=== PATIENT | male | born 1965 | race African-American/Black ===

== ENCOUNTER 2016-11-17 08:27 | Emergency (ER) | payer BC, SELFPAY ==
[2016-11-17] MEDS ORDERED: guaiFENesin 100 MG/5 ML UDCUP ONE (08:53)
[2016-11-17] MEDS ORDERED: Sodium Chloride 0.9% 1,000 ML ONE (09:06)
--- NOTE | 2016-11-17 09:12 | RAD ---
CHEST PA AND LATERAL: Date: 11/17/16 HISTORY: 50-year-old male with cough, with white sputum for 1 month. FINDINGS: Heart size is within normal limits. Old granulomatous calcifications. No confluent pneumonia, overt edema, or pleural effusion. IMPRESSION: Old granulomatous disease. Stable from 06/30/14. No evidence for pneumonia. POS: [facility]
--- NOTE | 2016-11-17 09:22 | RAD ---
3 VIEWS PARANASAL SINUSES: Date: 11/17/16 INDICATION: Cough with white sputum from the mouth. FINDINGS: There is an air fluid level seen within the right maxillary sinus. There is mild mucosal thickening involving the inferior aspect of the left maxillary sinus. Frontal sinuses appear clear. Ethmoid air cells appear clear. Orbital rims are intact. IMPRESSION: Air fluid level within the right maxillary sinus suspicious for acute sinusitis. POS: [facility]
[2016-11-17 09:35] LABS: #Basophils 0.1 thou/uL (0.0-0.2); #Eosinphils 0.7 thou/uL (0.0-0.7); #Lymphocytes 1.9 thou/uL (1.20-3.40); #Monocytes 0.4 thou/uL (0.11-0.59); #Neutrophils 1.9 thou/uL (1.40-6.50); %Basophils 1.9 % (0.0-1.0); %Eosinophils 13.5 % (0.0-10.0); %Lymphocytes 38.4 % (21.0-51.0); %Monocytes 7.2 % (0.0-10.0); Hematocrit 47.6 % (42.0-52.0); Mean Platelet Volume 5.9 fL (7.4-10.4); Red Blood Cell (RBC) Count 5.18 mill/uL (4.70-6.10)
[2016-11-17] MEDS ORDERED: Guaifenesin DM 100-10/5 ML UDCUP ONE (09:35)
[2016-11-17] MEDS ORDERED: HYDROcodone/Acetaminophen 10/325 mg Tablet ONE (09:36)
[2016-11-17] MEDS ORDERED: Amoxicillin/Potassium Clav 875 MG TAB ONE (09:36)
[2016-11-17 09:43] LABS: ALT (SGPT) 26 U/L (0-55); AST (SGOT) 28 U/L (5-34); Alkaline Phosphatase 61 U/L (40-150); Anion Gap 19 mmol/L (10-20); BUN (Urea Nitrogen) 14 mg/dL (8.9-20.6); Bilirubin, Total 0.5 mg/dL (0.2-1.2); Calc. Creatinine Clearance 0 mL/min (70-130); Calcium 9.6 mg/dL (7.8-10.44); Carbon Dioxide 19 mmol/L (22-29); Chloride 107 mmol/L (98-107); Estimated GFR-MDRD 81; Globulin 3.6 g/dL (2.4-3.5); Protein, Total 8.4 g/dL (6.0-8.3)
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
[2016-11-17] MEDS ORDERED: Lisinopril 10 MG TAB ONE (10:38)
== END 2016-11-17 10:50 | disposition home or self-care (01) ==
LOC: NAV ERS 08:27
DX: J01.90 Acute sinusitis, unspecified (principal); J40 Bronchitis, not specified as acute or chronic; H66.92 Otitis media, unspecified, left ear; I10 Essential (primary) hypertension
CPT/HCPCS: 36415; 70220; 71020; 80053; 85025; 85379; 94640; J7050; J7620

== ENCOUNTER 2016-12-14 15:19 | Emergency (ER) | payer BC, SELFPAY ==
[2016-12-14] MEDS ORDERED: Labetalol HCl 100 MG/20 ML VIAL ONE (15:47)
--- NOTE | 2016-12-14 16:07 | RAD ---
PORTABLE CHEST: History: 50-year-old male with shortness of breath. Comparison: 06-30-14, 11-17-16 FINDINGS: Old granulomatous disease. Heart size is within normal limits. The lungs are clear. IMPRESSION: No acute intrathoracic disease. POS: [facility]
[2016-12-14 16:17] LABS: Troponin I 0.034 ng/mL (< 0.028)
[2016-12-14 16:32] LABS: #Basophils 0.1 thou/uL (0.0-0.2); #Eosinphils 0.7 thou/uL (0.0-0.7); #Lymphocytes 1.4 thou/uL (1.20-3.40); #Monocytes 0.3 thou/uL (0.11-0.59); #Neutrophils 1.9 thou/uL (1.40-6.50); %Basophils 1.9 % (0.0-1.0); %Eosinophils 15.3 % (0.0-10.0); %Lymphocytes 33.4 % (21.0-51.0); %Monocytes 6.1 % (0.0-10.0); Mean Platelet Volume 5.8 fL (7.4-10.4); Red Blood Cell (RBC) Count 5.43 mill/uL (4.70-6.10); White Blood Cell (WBC) Count 4.3 thou/uL (4.8-10.8)
[2016-12-14] MEDS ORDERED: Nitroglycerin 2% Ointment 1 INCH/1 GM Packet ONE (16:48)
[2016-12-14 17:36] LABS: ALT (SGPT) 25 U/L (0-55); AST (SGOT) 23 U/L (5-34); Alkaline Phosphatase 68 U/L (40-150); Anion Gap 20 mmol/L (10-20); BUN (Urea Nitrogen) 20 mg/dL (8.9-20.6); Bilirubin, Total 0.9 mg/dL (0.2-1.2); Calc. Creatinine Clearance 0 mL/min (70-130); Calcium 9.8 mg/dL (7.8-10.44); Carbon Dioxide 19 mmol/L (22-29); Chloride 104 mmol/L (98-107); Estimated GFR-MDRD 75; Globulin 3.3 g/dL (2.4-3.5); Protein, Total 7.9 g/dL (6.0-8.3)
[2016-12-14] MEDS ORDERED: Esmolol 2,500 MG/NS 250 ML 250 ML ONE (18:07)
[2016-12-14] MEDS ORDERED: niCARdipine 20MG In NaCl 20 MG/200 ML BAG ONE (18:11)
[2016-12-14] MEDS ORDERED: Acetaminophen 500 MG TAB ONE (18:57)
== END 2016-12-14 19:56 | disposition short-term general hospital (02) ==
LOC: NAV ERS 15:19
DX: I10 Essential (primary) hypertension (principal); R79.89 Other specified abnormal findings of blood chemistry; J45.909 Unspecified asthma, uncomplicated; F17.220 Nicotine dependence, chewing tobacco, uncomplicated
CPT/HCPCS: 71010; 80053; 82553; 83880; 84484; 85025; 85379; 93005; 96365; 96366; 96375; 96376

== ENCOUNTER 2018-11-30 13:58 | Emergency (ER) | payer BC, SELFPAY ==
[2018-11-30] MEDS ORDERED: Cyclobenzaprine 10 MG TAB ONE (14:44)
[2018-11-30] MEDS ORDERED: Ketorolac Tromethamine 60 MG/2 ML VIAL ONE (14:44)
[2018-11-30] MEDS ORDERED: cloNIDine 0.2 MG TAB ONE (14:58)
[2018-11-30] MEDS ORDERED: predniSONE 20 MG TAB ONE (16:38)
== END 2018-11-30 16:51 | disposition home or self-care (01) ==
LOC: NAV ERS 13:58
DX: J20.9 Acute bronchitis, unspecified (principal); M54.2 Cervicalgia; M54.5 Low back pain; J45.909 Unspecified asthma, uncomplicated; I10 Essential (primary) hypertension; F17.220 Nicotine dependence, chewing tobacco, uncomplicated; Z79.899 Other long term (current) drug therapy
CPT/HCPCS: 93005; 94640; 96372; J1885; J7620